=== PATIENT | male | born 1990 | race American Indian/Alaskan Native ===

== ENCOUNTER 2017-01-30 13:50 | Emergency (ER) | payer SELFPAY ==
--- NOTE | 2017-01-30 13:50 | EDM.PDOC ---
ED HPI GENERAL MEDICAL PROBLEM - General Chief Complaint: Drug or Alcohol Abuse Stated Complaint: chest pain. In by [facility] Time Seen by Provider: 01/30/17 13:50 Source of Information: Reports: Patient, EMS, Old Records, RN, RN Notes Reviewed History Limitations: Reports: No Limitations - History of Present Illness INITIAL COMMENTS - FREE TEXT/NARRATIVE: Arrives by ambulance stating that yesterday was his birthday and he got really drunk, then this morning he woke with anxiety and ran outside, then laid down on the ground and told his girlfriend to call 911. Now the pt states that he is pain free, but still would like to be checked out. Onset: Today Duration: Improving Location: Reports: Chest, Generalized Severity: Severe Improves with: Reports: None Worsens with: Reports: None Associated Symptoms: Reports: No Other Symptoms Left Chest Pain Score (Numeric/FACES): 3 - Related Data Allergies Allergy/AdvReac Type Severity Reaction Status Date / Time No Known Allergies Allergy Verified 01/30/17 13:57 Home Meds: Home Meds . [No Known Home Meds] 07/09/15 [History] Past Medical History - Past Health History Medical/Surgical History: Denies Medical/Surgical History HEENT History: Reports: None Cardiovascular History: Reports: None Respiratory History: Reports: None Gastrointestinal History: Reports: None Genitourinary History: Reports: None Musculoskeletal History: Reports: None Neurological History: Reports: None Psychiatric History: Reports: Anxiety Endocrine/Metabolic History: Reports: None Hematologic History: Reports: None Immunologic History: Reports: None Oncologic (Cancer) History: Reports: None Dermatologic History: Reports: None - Past Surgical History Other HEENT Surgeries/Procedures: nasal surgery Respiratory Surgical History: Reports: None GI Surgical History: Reports: None Male Surgical History: Reports: None Musculoskeletal Surgical History: Reports: None Social & Family History - Family History Family Medical History: Noncontributory - Tobacco Use Smoking Status *Q: Former Smoker - Alcohol Use Days Per Week of Alcohol Use: 7 Number of Drinks Per Day: 2 Total Drinks Per Week: 14 - Recreational Drug Use Recreational Drug Use: No - Living Situation & Occupation Living situation: Reports: with Significant Other Occupation: Unemployed ED ROS GENERAL - Review of Systems Review Of Systems: ROS reveals no pertinent complaints other than HPI. ED EXAM, GENERAL - Physical Exam Exam: See Below Exam Limited By: Intoxication General Appearance: Alert, WD/WN, No Apparent Distress, Anxious Eye Exam: Bilateral Eye: Normal Inspection Ears: Normal External Exam Nose: Normal Inspection Throat/Mouth: Normal Inspection Head: Atraumatic, Normocephalic Neck: Normal Inspection, Supple, Non-Tender, Full Range of Motion Respiratory/Chest: No Respiratory Distress, Lungs Clear, Normal Breath Sounds, No Accessory Muscle Use, Chest Non-Tender Cardiovascular: Normal Peripheral Pulses, Regular Rate, Rhythm, No Edema, No Gallop, No JVD, No Murmur, No Rub GI/Abdominal: Normal Bowel Sounds, Soft, Non-Tender, No Organomegaly, No Distention, No Abnormal Bruit, No Mass Back Exam: Normal Inspection Extremities: Normal Inspection Neurological: Alert, Oriented, CN II-XII Intact, Normal Cognition, Normal Gait, No Motor/Sensory Deficits Psychiatric: Normal Affect, Normal Mood Skin Exam: Warm, Dry, Intact, Normal Color, No Rash EKG INTERPRETATION EKG Date: 01/30/17 Time: 13:55 Rhythm: Other (SR) Rate (Beats/Min): 81 [place]: Normal P-Wave: Present QRS: Normal ST-T: Normal QT: Normal Comparison: No Change Course - Vital Signs Last Recorded V/S: Last Vital Signs Temp 36.2 C 01/30/17 15:28 Pulse 100 01/30/17 15:28 Resp 16 01/30/17 15:28 BP 108/80 01/30/17 15:28 Pulse Ox 99 01/30/17 15:28 - Orders/Labs/Meds Orders: Active Orders 24 hr Category Date Time Status EKG 12 Lead [EKG Documentation Completion] [RC] STAT Care 01/30/17 13:53 Active Labs: Laboratory Tests 01/30/17 01/30/17 01/30/17 Range/Units 14:10 14:10 14:10 WBC 7.3 (5.0-10.0) 10^3/uL RBC 5.41 (4.6-6.2) 10^6/uL Hgb 15.6 (14.0-18.0) g/dL Hct 46.8 (40.0-54.0) % MCV 86.5 (80-100) fL MCH 28.8 (27.0-34.0) pg MCHC 33.3 (33.0-35.0) g/dL Plt Count 353 (150-450) 10^3/uL Neut % (Auto) 60.7 (42.2-75.2) % Lymph % (Auto) 27.4 (20.5-50.1) % [place] % (Auto) 10.1 H (2-8) % Eos % (Auto) 1.0 (1.0-3.0) % Baso % (Auto) 0.8 (0.0-1.0) % D-Dimer, Quantitative < 100 (0-400) ng/mL Sodium 143 (135-145) mmol/L Potassium 3.7 (3.6-5.0) mmol/L Chloride 106 (101-111) mmol/L Carbon Dioxide 24.0 (21.0-31.0) mmol/L Anion Gap 16.7 BUN 6 L (7-18) mg/dL Creatinine 0.8 (0.6-1.3) mg/dL Est Cr Clr Drug Dosing 147.12 mL/min Estimated GFR (MDRD) > 60 BUN/Creatinine Ratio 7.50 Glucose 104 (74-105) mg/dL Calcium 8.3 L (8.4-10.2) mg/dl Total Bilirubin 0.7 (0.2-1.0) mg/dL AST 25 (10-42) IU/L ALT 28 (10-60) IU/L Alkaline Phosphatase 109 (42-121) IU/L Troponin I < 0.02 (0.00-0.02) ng/ml Total Protein 7.8 (6.7-8.2) g/dl Albumin 3.9 (3.2-5.5) g/dl Globulin 3.9 Albumin/Globulin Ratio 1.00 Amylase 40 (28-100) U/L Lipase 16 L (22-51) U/L Urine Color (YELLOW) Urine Appearance (CLEAR) Urine pH (5.0-9.0) Ur Specific [place] (1.005-1.030) Urine Protein (NEGATIVE) Urine Glucose (UA) (NEGATIVE) Urine Ketones (NEGATIVE) Urine Occult Blood (NEGATIVE) Urine Nitrite (NEGATIVE) Urine Bilirubin (NEGATIVE) Urine Urobilinogen (0.2-1.0) mg/dL Ur Leukocyte Esterase (NEGATIVE) Urine RBC /HPF Urine WBC (0-5/HPF) /HPF Ur Epithelial Cells /HPF Urine Bacteria (0-FEW/HPF) /HPF Urine Opiates Screen (NEGATIVE) Ur Oxycodone Screen (NEGATIVE) Urine Methadone Screen (NEGATIVE) Ur Barbiturates Screen (NEGATIVE) U Tricyclic Antidepress (NEGATIVE) Ur Phencyclidine Scrn (NEGATIVE) Ur Amphetamine Screen (NEGATIVE) U Methamphetamines Scrn (NEGATIVE) Urine MDMA Screen (NEGATIVE) U Benzodiazepines Scrn (NEGATIVE) Urine Cocaine Screen (NEGATIVE) U Marijuana (THC) Screen (NEGATIVE) Ethyl Alcohol 306 mg/dL 01/30/17 01/30/17 Range/Units 14:46 14:46 WBC (5.0-10.0) 10^3/uL RBC (4.6-6.2) 10^6/uL Hgb (14.0-18.0) g/dL Hct (40.0-54.0) % MCV (80-100) fL MCH (27.0-34.0) pg MCHC (33.0-35.0) g/dL Plt Count (150-450) 10^3/uL Neut % (Auto) (42.2-75.2) % Lymph % (Auto) (20.5-50.1) % [place] % (Auto) (2-8) % Eos % (Auto) (1.0-3.0) % Baso % (Auto) (0.0-1.0) % D-Dimer, Quantitative (0-400) ng/mL Sodium (135-145) mmol/L Potassium (3.6-5.0) mmol/L Chloride (101-111) mmol/L Carbon Dioxide (21.0-31.0) mmol/L Anion Gap BUN (7-18) mg/dL Creatinine (0.6-1.3) mg/dL Est Cr Clr Drug Dosing mL/min Estimated GFR (MDRD) BUN/Creatinine Ratio Glucose (74-105) mg/dL Calcium (8.4-10.2) mg/dl Total Bilirubin (0.2-1.0) mg/dL AST (10-42) IU/L ALT (10-60) IU/L Alkaline Phosphatase (42-121) IU/L Troponin I (0.00-0.02) ng/ml Total Protein (6.7-8.2) g/dl Albumin (3.2-5.5) g/dl Globulin Albumin/Globulin Ratio Amylase (28-100) U/L Lipase (22-51) U/L Urine Color Yellow (YELLOW) Urine Appearance Clear (CLEAR) Urine pH 6.0 (5.0-9.0) Ur Specific [place] 1.020 (1.005-1.030) Urine Protein Negative (NEGATIVE) Urine Glucose (UA) Negative (NEGATIVE) Urine Ketones Negative (NEGATIVE) Urine Occult Blood Negative (NEGATIVE) Urine Nitrite Negative (NEGATIVE) Urine Bilirubin Negative (NEGATIVE) Urine Urobilinogen 0.2 (0.2-1.0) mg/dL Ur Leukocyte Esterase Negative (NEGATIVE) Urine RBC Not seen /HPF Urine WBC 0-5 (0-5/HPF) /HPF Ur Epithelial Cells Rare /HPF Urine Bacteria Occasional (0-FEW/HPF) /HPF Urine Opiates Screen Negative (NEGATIVE) Ur Oxycodone Screen Negative (NEGATIVE) Urine Methadone Screen Negative (NEGATIVE) Ur Barbiturates Screen Negative (NEGATIVE) U Tricyclic Antidepress Negative (NEGATIVE) Ur Phencyclidine Scrn Negative (NEGATIVE) Ur Amphetamine Screen Negative (NEGATIVE) U Methamphetamines Scrn Negative (NEGATIVE) Urine MDMA Screen Negative (NEGATIVE) U Benzodiazepines Scrn Negative (NEGATIVE) Urine Cocaine Screen Negative (NEGATIVE) U Marijuana (THC) Screen Negative (NEGATIVE) Ethyl Alcohol mg/dL - Radiology Interpretation Free Text/Narrative:: CXR: no acute process. Departure - Departure Time of Disposition: 15:24 Disposition: Home, Self-Care 01 Condition: Good Clinical Impression: Atypical chest pain, Anxiety Acute alcohol intoxication Qualifiers: Complication of substance-induced condition: uncomplicated Qualified Code(s): F10.920 - Alcohol use, unspecified with intoxication, uncomplicated - Discharge Information Instructions: Panic Attacks, [id number], Nonspecific Chest Pain, [id number] , Alcohol Intoxication, [id number] Forms: ED Department Discharge Additional Instructions: Do not drink alcohol. Follow up in clinic this week for recheck. - My Orders Last 24 Hours: My Active Orders 01/30/17 13:53 EKG 12 Lead [EKG Documentation Completion] [RC] STAT - Assessment/Plan Last 24 Hours: My Active Orders 01/30/17 13:53 EKG 12 Lead [EKG Documentation Completion] [RC] STAT
[2017-01-30 14:39] LABS: CHLORIDE,CL 106 mmol/L (101-111); SODIUM,NA 143 mmol/L (135-145)
--- NOTE | 2017-01-30 14:51 | CR ---
Contrast: 27-year-old male chest pain. Interpretation: Negative exam. AP portable chest film with external clinical research monitor leads. [place] thorax unremarkable. Normal cardiac silhouette without alveolar edema or dependent pleural effusion. No lung mass, hilar lymphadenopathy or focal lobar infiltrate/atelectasis. No pneumothorax.
[2017-01-30 15:29] VITALS: BP 108/80
--- NOTE | 2017-02-07 11:03 | EKG ---
01/30/2017- OLGA SON - EKG per my reading shows sinus rhythm at a rate of 80. No acute ST changes. [facility] /[id number]
== END 2017-01-30 16:00 | disposition home or self-care (01) ==
LOC: DL.ED 13:50
DX: R07.89 Other chest pain (principal); F41.9 Anxiety disorder, unspecified; F10.920 Alcohol use, unspecified with intoxication, uncomplicated; Z87.891 Personal history of nicotine dependence; Z98.890 Other specified postprocedural states; Y90.8 Blood alcohol level of 240 mg/100 ml or more
CPT/HCPCS: 36415; 71010; 80053; 80305; 81001; 82150; 83690; 84484; 85025; 85379; 93005; 93010; 99285; G0480; 99282

== ENCOUNTER 2017-07-11 10:09 | Emergency (ER) | payer OTHER ==
[2017-07-11 10:24] VITALS: BP 135/90
[2017-07-11] MEDS ORDERED: Bacitracin Oint 1 GM U/D Packet TOP ONE (10:45)
--- NOTE | 2017-07-11 10:52 | EDM.PDOC ---
ED HPI GENERAL MEDICAL PROBLEM - General Chief Complaint: Upper Extremity Injury/Pain Stated Complaint: CUT TO LEFT ARM, Time Seen by Provider: 07/11/17 10:34 Source of Information: Reports: Patient, RN, RN Notes Reviewed History Limitations: Reports: No Limitations - History of Present Illness INITIAL COMMENTS - FREE TEXT/NARRATIVE: Pt presents to the ER with c/o a cut on the left forearm. He states he cut his left forearm on a mirror while trying to replace it on July 03 or . He states he went to EMS at [facility] where it was cleaned up, dressed, and he was told to have it checked out. He states he was not told that he had a certain time frame to get it sutured. Patient states he has been cleaning it and keeping it covered. He states his last tetanus was 4-5 years ago. Pt denies numbness or tingling, can wiggle his fingers, and denies fever or chills, or drainage from the wound. Onset: Sudden Onset Date: 07/03/17 Severity: Mild Improves with: Reports: None Worsens with: Reports: None Associated Symptoms: Reports: No Other Symptoms - Related Data Allergies Allergy/AdvReac Type Severity Reaction Status Date / Time dog shampoo Allergy Swelling Uncoded 07/11/17 10:25 Home Meds: Home Meds . [No Known Home Meds] 07/09/15 [History] Past Medical History - Past Health History Medical/Surgical History: Denies Medical/Surgical History HEENT History: Reports: None Cardiovascular History: Reports: None Respiratory History: Reports: None Gastrointestinal History: Reports: None Genitourinary History: Reports: None Musculoskeletal History: Reports: None Neurological History: Reports: None Psychiatric History: Reports: Anxiety Endocrine/Metabolic History: Reports: None Hematologic History: Reports: None Immunologic History: Reports: None Oncologic (Cancer) History: Reports: None Dermatologic History: Reports: None - Infectious Disease History Infectious Disease History: Reports: Chicken Pox - Past Surgical History Head Surgeries/Procedures: Reports: None Other HEENT Surgeries/Procedures: nasal surgery Respiratory Surgical History: Reports: None GI Surgical History: Reports: None Male Surgical History: Reports: None Musculoskeletal Surgical History: Reports: None Social & Family History - Family History Family Medical History: Noncontributory - Tobacco Use Smoking Status *Q: Current Every Day Smoker Years of Tobacco use: 8 Packs/Tins Daily: 0.5 Second Hand Smoke Exposure: No - Caffeine Use Caffeine Use: Reports: Coffee, Soda - Alcohol Use Days Per Week of Alcohol Use: 7 Number of Drinks Per Day: 2 Total Drinks Per Week: 14 - Recreational Drug Use Recreational Drug Use: No - Living Situation & Occupation Living situation: Reports: with Significant Other Occupation: Unemployed Review of Systems - Review of Systems Review Of Systems: ROS reveals no pertinent complaints other than HPI. ED EXAM, GENERAL - Physical Exam Exam: See Below Exam Limited By: No Limitations General Appearance: Alert, WD/WN, No Apparent Distress Eye Exam: Bilateral Eye: EOMI, Normal Fundi, PERRL Ears: Normal External Exam, Hearing Grossly Normal Nose: Normal Inspection Throat/Mouth: Normal Inspection, Normal Voice, No Airway Compromise Head: Atraumatic, Normocephalic Neck: Normal Inspection, Full Range of Motion Respiratory/Chest: No Respiratory Distress, Lungs Clear, Normal Breath Sounds, No Accessory Muscle Use, Chest Non-Tender Cardiovascular: Normal Peripheral Pulses, Regular Rate, Rhythm, No Edema, No Gallop, No JVD, No Murmur, No Rub Peripheral Pulses: 2+: Radial (L), Radial (R) GI/Abdominal: Normal Bowel Sounds, Soft, Non-Tender, No Organomegaly, No Distention, No Abnormal Bruit, No Mass (Male) Exam: Deferred Rectal (Males) Exam: Deferred Back Exam: Normal Inspection, Full Range of Motion, NT Extremities: Normal Range of Motion, No Pedal Edema, Normal Capillary Refill, Other (laceration to dorsal left forearm) Neurological: Alert, Oriented, CN II-XII Intact, Normal Cognition, Normal Gait, Normal Reflexes, No Motor/Sensory Deficits Skin Exam: Warm, Dry, Normal Color, Other (7cm gaping laceration to the dorsal side of the left forearm. No drainage, no bleeding. ) Lymphatic: No Adenopathy Course - Vital Signs Last Recorded V/S: Last Vital Signs Temp 98.1 F 07/11/17 10:19 Pulse 66 07/11/17 10:19 Resp 16 07/11/17 10:19 BP 135/90 07/11/17 10:19 Pulse Ox 99 07/11/17 10:19 - Orders/Labs/Meds Meds: Medications Discontinued Medications Generic Name Dose Route Start Last Admin Trade Name Freq PRN Reason Stop Dose Admin Bacitracin 1 dose 07/11/17 10:45 07/11/17 10:50 Bacitracin Oint 1 Gm TOP 07/11/17 10:46 1 dose ONETIME ONE Administration - Re-Assessments/Exams Free Text/Narrative Re-Assessment/Exam: 07/11/17 15:35 Patient was told that we cannot suture the laceration at this time due to the amount of time it has been open. Patient states understanding. Departure - Departure Time of Disposition: 10:48 Disposition: Home, Self-Care 01 Condition: Good Clinical Impression: Laceration - Discharge Information Instructions: Laceration Care, Adult, [id number] Referrals: PCP,None [Primary Care Provider] - Forms: ED Department Discharge Additional Instructions: RX: Bacitracin Apply bacitracin to the area twice daily, cover with a non-stick pad, and wrap with Kerlix wrap. Follow up with your primary care facility as necessary. Watch for signs of infection including: fever, chills, drainage from the wound.
== END 2017-07-11 11:05 | disposition home or self-care (01) ==
LOC: DL.ED 10:09
DX: S51.812A Laceration without foreign body of left forearm, initial encounter (principal); F17.210 Nicotine dependence, cigarettes, uncomplicated; Z91.048 Other nonmedicinal substance allergy status; W25.XXXA Contact with sharp glass, initial encounter
CPT/HCPCS: 99283

== ENCOUNTER 2020-10-28 18:43 | Emergency (ER) | payer MEDICAID, OTHER ==
[2020-10-28 19:07] VITALS: BP 136/96; PULSE 111
[2020-10-28] MEDS ORDERED: cefTRIAXone 500 MG, Lidocaine 1% 1 ML IM ONE ×2 (19:38)
[2020-10-28] MEDS ORDERED: Doxycycline Monohydrate 100 MG Cap PO ONE (19:40)
--- NOTE | 2020-10-28 19:48 | EDM.PDOC ---
ED HPI GENERAL MEDICAL PROBLEM - General Chief Complaint: Skin Complaint Stated Complaint: PENIS SWALLON Time Seen by Provider: 10/28/20 19:30 Source of Information: Reports: Patient History Limitations: Reports: No Limitations - History of Present Illness INITIAL COMMENTS - FREE TEXT/NARRATIVE: This 30 yo male patient reports to the ED with swelling to his penis for the past 2 days. The patient reports that he thinks his girlfriend may have bitten his penis 2 days ago prior to symptom onset. The patient reports he has been icing the area. The patient has not noticed any drainage or difficulties urinating. The patient has not been seen in the clinic for these symptoms. Duration: Day(s): (2), Constant, Getting Worse Location: Reports: Other Quality: Reports: Ache, Pressure, Throbbing Severity: Moderate Improves with: Reports: None Worsens with: Reports: None Context: Reports: Other Associated Symptoms: Reports: No Other Symptoms Penis Pain Score (Numeric/FACES): 6 - Related Data Allergies Allergy/AdvReac Type Severity Reaction Status Date / Time dog shampoo Allergy Swelling Uncoded 10/28/20 19:08 Home Meds: Home Meds . [No Known Home Meds] 07/09/15 [History] Past Medical History - Past Health History Medical/Surgical History: Denies Medical/Surgical History HEENT History: Reports: None Cardiovascular History: Reports: None Respiratory History: Reports: None Gastrointestinal History: Reports: None Genitourinary History: Reports: None Musculoskeletal History: Reports: None, Other (See Below) Other Musculoskeletal History: broken nose. Neurological History: Reports: None Psychiatric History: Reports: Anxiety Endocrine/Metabolic History: Reports: None Hematologic History: Reports: None Immunologic History: Reports: None Oncologic (Cancer) History: Reports: None Dermatologic History: Reports: None - Infectious Disease History Infectious Disease History: Reports: Chicken Pox - Past Surgical History Head Surgeries/Procedures: Reports: None Other HEENT Surgeries/Procedures: nasal surgery Respiratory Surgical History: Reports: None GI Surgical History: Reports: None Male Surgical History: Reports: None Musculoskeletal Surgical History: Reports: None Social & Family History - Family History Family Medical History: No Pertinent Family History - Tobacco Use Tobacco Use Status *Q: Never Tobacco User Second Hand Smoke Exposure: No - Caffeine Use Caffeine Use: Reports: Coffee - Recreational Drug Use Drug Use in Last 12 Months: Yes Recreational Drug Type: Reports: Marijuana/Hashish Recreational Drug Use Frequency: Weekly - Living Situation & Occupation Living situation: Reports: with Significant Other Occupation: Unemployed ED ROS GENERAL - Review of Systems Review Of Systems: Comprehensive ROS is negative, except as noted in HPI. ED EXAM, SKIN/RASH Exam: See Below Exam Limited By: No Limitations General Appearance: Alert, WD/WN, Moderate Distress Eye Exam: Bilateral Eye: EOMI, Normal Inspection, PERRL Ears: Normal External Exam, Normal Canal, Hearing Grossly Normal, Normal TMs Nose: Normal Inspection, Normal Mucosa, No Blood Throat/Mouth: Normal Inspection, Normal Lips, Normal Teeth, Normal Gums, Normal Oropharynx, Normal Voice, No Airway Compromise Head: Atraumatic, Normocephalic Neck: Normal Inspection, Supple, Non-Tender, Full Range of Motion Respiratory/Chest: No Respiratory Distress, Lungs Clear, Normal Breath Sounds, No Accessory Muscle Use, Chest Non-Tender Cardiovascular: Normal Peripheral Pulses, Regular Rate, Rhythm, No Edema, No Gallop, No JVD, No Murmur, No Rub GI/Abdominal: Normal Bowel Sounds, Soft, Non-Tender, No Organomegaly, No Distention, No Abnormal Bruit, No Mass (Male) Exam: Other (Swelling of the distal penis with no signs of injury) Rectal (Males) Exam: Deferred Back Exam: Normal Inspection, Full Range of Motion, NT Extremities: Normal Inspection, Normal Range of Motion, Non-Tender, No Pedal Edema, Normal Capillary Refill Neurological: Alert, Oriented, CN II-XII Intact, Normal Cognition, Normal Gait, Normal Reflexes, No Motor/Sensory Deficits Psychiatric: Normal Affect, Normal Mood Skin: Warm, Dry, Intact Location, Skin: Genital Characteristics: Erythematous Associated features: Warmth, Tenderness, Swelling, Inflammation. No: Induration, Crusting, Weeping Lymphatic: No Adenopathy Course - Vital Signs Last Recorded V/S: Last Vital Signs Temp 36.6 C 10/28/20 18:57 Pulse 111 H 10/28/20 18:57 Resp 20 10/28/20 18:57 BP 136/96 H 10/28/20 18:57 Pulse Ox - Orders/Labs/Meds Orders: Active Orders 24 hr Category Date Time Status CHLAMYDIA/GC NUCLEIC ACID AMP [MREF] Urgent Lab 10/28/20 18:57 Ordered CULTURE URINE [RM] Urgent Lab 10/28/20 19:19 Received Labs: Laboratory Tests 10/28/20 Range/Units 19:19 Urine Color Dark yellow (YELLOW) Urine Appearance Slightly cloudy (CLEAR) Urine pH >= 9.0 (5.0-9.0) Ur Specific [place] 1.015 (1.005-1.030) Urine Protein 30 H (NEGATIVE) Urine Glucose (UA) Negative (NEGATIVE) Urine Ketones Negative (NEGATIVE) Urine Occult Blood Negative (NEGATIVE) Urine Nitrite Negative (NEGATIVE) Urine Bilirubin Small H (NEGATIVE) Urine Urobilinogen 4.0 H (0.2-1.0) mg/dL Ur Leukocyte Esterase Trace H (NEGATIVE) Urine RBC Not seen /HPF Urine WBC 10-20 H (0-5/HPF) /HPF Ur Epithelial Cells Rare (NOT SEEN) /HPF Urine Bacteria Few (0-FEW/HPF) /HPF Meds: Medications Discontinued Medications Generic Name Dose Route Start Last Admin Trade Name Freq PRN Reason Stop Dose Admin Ceftriaxone Sodium 500 mg/ 0 mg 10/28/20 19:38 Lidocaine HCl 1 ml IM 10/28/20 19:39 ONETIME ONE Doxycycline Monohydrate 100 mg 10/28/20 19:40 Doxycycline Monohydrate 100 Mg Cap PO 10/28/20 19:41 ONETIME ONE Departure - Departure Time of Disposition: 19:47 Disposition: Home, Self-Care 01 Condition: Fair Clinical Impression: Balanitis - Discharge Information *PRESCRIPTION DRUG MONITORING PROGRAM REVIEWED*: Not Applicable Care Plan Goals: The patient was advised of the examination and lab results during the visit. The patient was given an injection of Rocephin and an oral dose of Doxycycline while in the ED. The patient was discharged with a script for Doxycycline (100 mg) #14 to take 1 by mouth 2 times per day for 7 days. The patient should follow-up with his primary care facility within the week. If the patient has any additional symptoms or concerns, the patient should either return to the emergency department or visit his primary care facility. Sepsis Event Note (ED) - Evaluation Sepsis Screening Result: No Definite Risk - Focused Exam Vital Signs: Vital Signs Temp Pulse Resp BP 10/28/20 18:57 36.6 C 111 H 20 136/96 H - My Orders Last 24 Hours: My Active Orders 10/28/20 18:57 CHLAMYDIA/GC NUCLEIC ACID AMP [MREF] Urgent 10/28/20 19:19 CULTURE URINE [RM] Urgent - Assessment/Plan Last 24 Hours: My Active Orders 10/28/20 18:57 CHLAMYDIA/GC NUCLEIC ACID AMP [MREF] Urgent 10/28/20 19:19 CULTURE URINE [RM] Urgent
[2020-11-01 13:47] LABS: C.TRACHOMATIS BY TMA Negative (Negative); N.GONORRHOEAE BY TMA Negative (Negative)
== END 2020-10-28 19:56 | disposition home or self-care (01) ==
LOC: DL.ED 18:43
DX: N48.1 Balanitis (principal); Z91.09 Other allergy status, other than to drugs and biological substances
CPT/HCPCS: 81001; 87086; 87491; 87591; 96372; 99283; 99284; A9270; J0696

== ENCOUNTER 2022-01-26 09:41 | Emergency (ER) | payer MEDICAID, OTHER ==
[2022-01-26 09:56] VITALS: BP 132/105; PULSE 88
[2022-01-26 10:34] LABS: AMPHETAMINES,URINE NEGATIVE (NEGATIVE); BARBITURATES,URINE NEGATIVE (NEGATIVE); BENZODIAZEPINE,URINE NEGATIVE (NEGATIVE); MDMA (ECSTASY), URINE NEGATIVE (NEGATIVE); METHADONE,URINE NEGATIVE (NEGATIVE); METHAMPHETAMINES,URINE NEGATIVE (NEGATIVE); OPIATES,URINE NEGATIVE (NEGATIVE); OXYCODONE,URINE NEGATIVE (NEGATIVE); PHENCYCLIDINE,URINE NEGATIVE (NEGATIVE); TCA,URINE NEGATIVE (NEGATIVE)
[2022-01-26] MEDS ORDERED: Ondansetron 4 MG/2 ML SDV IVPUSH ONE (10:35)
[2022-01-26] MEDS ORDERED: Sodium Chloride 0.9% 10 ML Syringe FLUSH PRN (10:35)
[2022-01-26] MEDS ORDERED: Sodium Chloride 0.9% 1,000 ML IV ONE (10:35)
[2022-01-26 10:38] LABS: CHLORIDE,CL 102 mmol/L (98-107)
[2022-01-26 10:40] LABS: ESTIMATED GFR 111 mL/min (>=60)
[2022-01-26] MEDS ORDERED: Iopamidol 612 MG/ML 100 ML Bottle IVPUSH ONE (11:47)
[2022-01-26 12:06] LABS: SODIUM,NA 144 mmol/L (136-145)
[2022-01-26 12:07] LABS: ANION GAP 14.9 mEq/L (7-13)
== END 2022-01-26 13:00 | disposition home or self-care (01) ==
LOC: DL.ED 09:41
DX: R10.10 Upper abdominal pain, unspecified (principal); Z91.048 Other nonmedicinal substance allergy status; Z87.891 Personal history of nicotine dependence; Z20.822 Contact with and (suspected) exposure to COVID-19
CPT/HCPCS: 36415; 71045; 74018; 74177; 80053; 80305; 80307; 81001; 83605; 83690; 85025; 86140; 87635; 96361; 96374; 99285; J2405; J7030; Q9967; 99283; U0002

== ENCOUNTER 2022-04-16 15:29 | Emergency (ER) | payer MEDICAID | END 2022-04-16 16:59 | disposition home or self-care (01) | LOC: DL.ED 15:29 | DX: M79.671 Pain in right foot (principal); M79.672 Pain in left foot; I10 Essential (primary) hypertension; E11.9 Type 2 diabetes mellitus without complications | CPT/HCPCS: 99283 ==

== ENCOUNTER 2023-01-05 17:09 | Emergency (ER) | payer MEDICAID ==
[2023-01-05] MEDS ORDERED: Lidocaine 1% 5 ML VIAL INJECT ONE (17:16)
[2023-01-05 17:42] VITALS: BP 136/108; PULSE 72
== END 2023-01-05 17:50 | disposition home or self-care (01) ==
LOC: DL.ED 17:09
DX: L02.01 Cutaneous abscess of face (principal); H66.42 Suppurative otitis media, unspecified, left ear; Z91.048 Other nonmedicinal substance allergy status
CPT/HCPCS: 10060; 69000; 87070; 99282; 99283; J3490

== ENCOUNTER 2023-03-15 09:54 | Inpatient (IN) | payer MEDICAID ==
[2023-03-15] MEDS ORDERED: Ondansetron 4 MG/2 ML SDV IVPUSH ONE (10:24)
[2023-03-15] MEDS ORDERED: Lactated Ringers 1,000 ML IV ONE ×2 (10:24→11:14)
[2023-03-15] MEDS ORDERED: HYDROmorphone 1 MG/ML Syringe IVPUSH ONE ×2 (10:24→12:33)
[2023-03-15 10:34] LABS: BASOPHILS PERCENT AUTO 0.1 % (0.0-1.0); HEMATOCRIT 51.6 % (40.0-54.0); HEMOGLOBIN 17.6 g/dL (14.0-18.0); LYMPHOCYTES PERCENT AUTO 2.2 % (20.5-50.1); MEAN CORPUSCULAR HEMOGLOBIN 30.6 pg (27.0-34.0); MEAN CORPUSCULAR HGB CONC 34.1 g/dL (33.0-35.0); MEAN CORPUSCULAR VOLUME 89.6 fL (80-100); NEUTROPHILS PERCENT AUTO 91.7 % (42.2-75.2); PLATELET COUNT,PLT 346 10^3/uL (150-450); RED BLOOD CELL COUNT 5.76 10^6/uL (4.6-6.2)
[2023-03-15 10:37] LABS: INR 0.9 (0.9-1.2); PROTHROMBIN TIME 9.6 SEC (9.0-12.0)
[2023-03-15 10:39] LABS: A/G RATIO 0.9; ALANINE AMINOTRANSFERASE,ALT 40 U/L (16-63); ALBUMIN 4.6 g/dL (3.4-5.0); ALKALINE PHOSPHATASE 187 U/L (46-116); ANION GAP 28.8 mEq/L (7-13); ASPARTATE AMNIOTRANSFERASE,AST 27 U/L (15-37); BILIRUBIN TOTAL 3.2 mg/dL (0.2-1.0); BLOOD UREA NITROGEN,BUN 17 mg/dL (7-18); BUN/CREATININE RATIO 14.9 (No establ ref range); C-REACTIVE PROTEIN 1.45 ng/dL (<=0.30); CALCIUM 10.7 mg/dL (8.5-10.1); CARBON DIOXIDE,CO2 21 mmol/L (21-32); CHLORIDE,CL 90 mmol/L (98-107); CREATININE 1.14 mg/dL (0.70-1.30); GLUCOSE RANDOM 110 mg/dL (70-99); MAGNESIUM 2.2 mg/dL (1.8-2.4); POTASSIUM,K 3.8 mmol/L (3.5-5.1); SODIUM,NA 136 mmol/L (136-145)
[2023-03-15 10:47] LABS: LACTIC ACID 1.6 mmol/L (0.4-2.0)
[2023-03-15 10:54] LABS: ESTIMATED GFR 87 mL/min (>=60)
[2023-03-15 10:55] LABS: ETHANOL BLOOD MEDICAL < 3 mg/dL (0); LIPASE > 250 U/L (16-77)
[2023-03-15] MEDS ORDERED: Iopamidol 755 Mg/ML 100 ML Bottle IVPUSH ONE (11:14)
[2023-03-15 11:29] LABS: APPEARANCE,URINE CLEAR (CLEAR); BILIRUBIN,URINE SMALL (NEGATIVE); COLOR,URINE DARK YELLOW (YELLOW); GLUCOSE,URINE NEGATIVE (NEGATIVE); KETONES,URINE >=160 (NEGATIVE); LEUKOCYTE ESTERASE,URINE NEGATIVE (NEGATIVE); NITRITE,URINE NEGATIVE (NEGATIVE); OCCULT BLOOD,URINE TRACE-INTACT (NEGATIVE); PROTEIN,URINE 100 (NEGATIVE); UROBILINOGEN,URINE 0.2 mg/dL (0.2-1.0)
[2023-03-15 11:31] LABS: MDMA (ECSTASY), URINE NEGATIVE (NEGATIVE); METHAMPHETAMINES,URINE NEGATIVE (NEGATIVE)
[2023-03-15 11:32] LABS: AMPHETAMINES,URINE NEGATIVE (NEGATIVE); BARBITURATES,URINE NEGATIVE (NEGATIVE); BENZODIAZEPINE,URINE NEGATIVE (NEGATIVE); METHADONE,URINE NEGATIVE (NEGATIVE); OPIATES,URINE NEGATIVE (NEGATIVE); OXYCODONE,URINE NEGATIVE (NEGATIVE); PHENCYCLIDINE,URINE NEGATIVE (NEGATIVE); TCA,URINE NEGATIVE (NEGATIVE)
[2023-03-15 11:41] LABS: BACTERIA,URINE RARE /HPF (0-FEW/HPF); EPITHELIAL CELLS,URINE RARE /HPF (NOT SEEN); HYALINE CASTS,URINE FEW; RBC,URINE 0-5 /HPF (0-5); WBC,URINE 0-5 /HPF (0-5/HPF)
[2023-03-15] MEDS ORDERED: Zolpidem 5 MG Tab PO PRN (13:09)
[2023-03-15] MEDS ORDERED: Ondansetron 4 MG Tab.DIS PO PRN (13:09)
[2023-03-15] MEDS ORDERED: Promethazine 25 MG/ML SDV IM PRN (13:09)
[2023-03-15] MEDS: Dextrose 5%-0.9% NaCl with KCl 1,000 ML IV SCH ×2 (13:36→19:21)
[2023-03-15] MEDS: Morphine 2 MG/ML SYRINGE IVPUSH PRN ×3 (15:17→19:38)
[2023-03-15] MEDS: Calcium Carbonate 500 MG Tab.Chew PO SCH (15:22)
[2023-03-15] MEDS: Vitamin B Complex Cap PO SCH (15:23)
[2023-03-15] MEDS: Thiamine 100 MG Tab PO SCH (15:23)
[2023-03-15] MEDS: Ondansetron 4 MG/2 ML SDV IVPUSH PRN (21:09)
[2023-03-15] MEDS: Morphine 4 MG/ML Syringe IVPUSH PRN (21:24)
[2023-03-16] MEDS: Dextrose 5%-0.9% NaCl with KCl 1,000 ML IV SCH ×3 (00:20→10:32)
[2023-03-16] MEDS: Morphine 4 MG/ML Syringe IVPUSH PRN ×5 (00:28→19:52)
[2023-03-16] MEDS: Ondansetron 4 MG/2 ML SDV IVPUSH PRN ×3 (04:00→19:50)
[2023-03-16 06:09] LABS: BASOPHILS PERCENT AUTO 0.1 % (0.0-1.0); HEMATOCRIT 45.6 % (40.0-54.0); HEMOGLOBIN 15.5 g/dL (14.0-18.0); LYMPHOCYTES PERCENT AUTO 2.7 % (20.5-50.1); MEAN CORPUSCULAR HEMOGLOBIN 30.7 pg (27.0-34.0); MEAN CORPUSCULAR VOLUME 90.3 fL (80-100); MONOCYTES PERCENT AUTO 8.9 % (2-8); NEUTROPHILS PERCENT AUTO 88.3 % (42.2-75.2); PLATELET COUNT,PLT 211 10^3/uL (150-450); RED BLOOD CELL COUNT 5.05 10^6/uL (4.6-6.2); WHITE BLOOD CELL COUNT,WBC 21.9 10^3/uL (5.0-10.0)
[2023-03-16 06:28] LABS: ANION GAP 11.6 mEq/L (7-13); CALCIUM 8.3 mg/dL (8.5-10.1); CREATININE 0.75 mg/dL (0.70-1.30); EST CRCL DRUG DOSING (CG) 136.71 mL/min; POTASSIUM,K 3.6 mmol/L (3.5-5.1)
[2023-03-16 07:46] LABS: C-REACTIVE PROTEIN 5.88 ng/dL (<=0.30)
[2023-03-16 07:56] LABS: LIPASE > 250 U/L (16-77)
[2023-03-16] MEDS ORDERED: oxyCODONE ER 10 MG TAB.ER PO SCH ×2 (09:00→22:30)
[2023-03-16] MEDS: Calcium Carbonate 500 MG Tab.Chew PO SCH (09:46)
[2023-03-16] MEDS: Vitamin B Complex Cap PO SCH (09:46)
[2023-03-16] MEDS: Thiamine 100 MG Tab PO SCH (09:47)
[2023-03-16] MEDS: Enoxaparin 40 MG/0.4 ML Syringe SUBCUT SCH (09:48)
[2023-03-16] MEDS ORDERED: LORazepam 0.5 MG Tab PO PRN (11:18)
[2023-03-16] MEDS ORDERED: MVI, Adult with Vitamin K 10 ML, Folic Acid 1 MG, Thiamine 100 MG in Lactated Ringers 1... IV ONE ×4 (11:18)
[2023-03-16] MEDS ORDERED: LORazepam 2 MG/ML SDV IV PRN (11:18)
[2023-03-16] MEDS ORDERED: cloNIDine 0.1 MG Tab PO PRN (11:18)
[2023-03-16] MEDS ORDERED: Diazepam 5 MG Tab PO PRN (11:18)
[2023-03-16] MEDS ORDERED: Thiamine 100 MG Tab PO SCH ×2 (11:19→21:00)
[2023-03-16] MEDS ORDERED: Metoprolol Tartrate 5 MG/5 ML SDV IVPUSH PRN (11:41)
[2023-03-16] MEDS ORDERED: hydrALAZINE 20 MG/ML SDV IVPUSH PRN (11:41)
[2023-03-16] MEDS ORDERED: cloNIDine 0.1 MG/Day Transdermal Patch TRDERM ONE (11:43)
[2023-03-16] MEDS ORDERED: Metoprolol Tartrate 25 MG Tab PO SCH (19:00)
[2023-03-16] MEDS ORDERED: Dextrose 5%-0.9% NaCl 1,000 ML IV SCH (20:00)
[2023-03-16] MEDS ORDERED: Morphine 2 MG/ML SYRINGE IVPUSH PRN (22:30)
[2023-03-16] MEDS: oxyCODONE ER 20 MG TAB.ER PO SCH (22:32)
[2023-03-16] MEDS: Folic Acid 1 MG Tab PO SCH (22:33)
[2023-03-16] MEDS: Metoprolol Tartrate 25 MG Tab PO SCH (22:33)
[2023-03-17] MEDS: Pantoprazole 40 MG Vial IVPUSH SCH (05:29)
[2023-03-17 06:18] LABS: BASOPHILS PERCENT AUTO 0.1 % (0.0-1.0); HEMATOCRIT 46.8 % (40.0-54.0); HEMOGLOBIN 15.7 g/dL (14.0-18.0); LYMPHOCYTES PERCENT AUTO 3.7 % (20.5-50.1); MEAN CORPUSCULAR HEMOGLOBIN 30.6 pg (27.0-34.0); MEAN CORPUSCULAR HGB CONC 33.5 g/dL (33.0-35.0); MEAN CORPUSCULAR VOLUME 91.2 fL (80-100); MONOCYTES PERCENT AUTO 6.9 % (2-8); NEUTROPHILS PERCENT AUTO 89.3 % (42.2-75.2); PLATELET COUNT,PLT 183 10^3/uL (150-450); RED BLOOD CELL COUNT 5.13 10^6/uL (4.6-6.2); WHITE BLOOD CELL COUNT,WBC 27.9 10^3/uL (5.0-10.0)
[2023-03-17 06:44] LABS: ALANINE AMINOTRANSFERASE,ALT 21 U/L (16-63); ALBUMIN 2.9 g/dL (3.4-5.0); ALKALINE PHOSPHATASE 113 U/L (46-116); ANION GAP 9.4 mEq/L (7-13); ASPARTATE AMNIOTRANSFERASE,AST 21 U/L (15-37); BILIRUBIN TOTAL 2.7 mg/dL (0.2-1.0); BLOOD UREA NITROGEN,BUN 4 mg/dL (7-18); BUN/CREATININE RATIO 5.3 (No establ ref range); CALCIUM 8.7 mg/dL (8.5-10.1); CARBON DIOXIDE,CO2 33 mmol/L (21-32); CHLORIDE,CL 94 mmol/L (98-107); CHOLESTEROL HDL 53 mg/dL (40-59); CHOLESTEROL LDL CALCULATED 69 mg/dL (0-100); CHOLESTEROL TOTAL 133 mg/dL (0-199); CREATININE 0.76 mg/dL (0.70-1.30); EST CRCL DRUG DOSING (CG) 134.91 mL/min; GLUCOSE RANDOM 100 mg/dL (70-99); POTASSIUM,K 3.4 mmol/L (3.5-5.1); PROTEIN TOTAL,TP 7.1 g/dL (6.4-8.2); SODIUM,NA 133 mmol/L (136-145); TRIGLYCERIDES 54 mg/dL (0-149)
[2023-03-17 06:59] LABS: A/G RATIO 0.69; ESTIMATED GFR 122 mL/min (>=60); LIPASE > 250 U/L (16-77)
[2023-03-17 07:00] LABS: C-REACTIVE PROTEIN 25.41 ng/dL (<=0.30)
[2023-03-17] MEDS ORDERED: Potassium Chloride 20 MEQ in Premix Bag 1 BAG IV ONE (08:25)
[2023-03-17] MEDS: Vitamin B Complex Cap PO SCH (09:21)
[2023-03-17] MEDS: oxyCODONE ER 20 MG TAB.ER PO SCH ×2 (09:21→20:11)
[2023-03-17] MEDS: Calcium Carbonate 500 MG Tab.Chew PO SCH (09:21)
[2023-03-17] MEDS: Folic Acid 1 MG Tab PO SCH (09:22)
[2023-03-17] MEDS: Metoprolol Tartrate 25 MG Tab PO SCH ×2 (09:22→20:11)
[2023-03-17] MEDS: Enoxaparin 40 MG/0.4 ML Syringe SUBCUT SCH (09:23)
[2023-03-17] MEDS: Piperacillin/Tazobactam 3.375 GM in Sodium Chloride 0.9% 100 ML IV SCH ×3 (09:25→20:12)
[2023-03-17] MEDS ORDERED: MVI, Adult with Vitamin K 10 ML, Folic Acid 1 MG, Thiamine 100 MG in Lactated Ringers 1... IV ONE ×4 (15:00)
[2023-03-17] MEDS: Multivitamin Tab PO SCH (20:11)
[2023-03-17] MEDS: Thiamine 100 MG Tab PO SCH (20:11)
[2023-03-17] MEDS: Saccharomyces Boulardii (Probiotic) 250 MG Cap PO SCH (21:07)
[2023-03-18] MEDS: Piperacillin/Tazobactam 3.375 GM in Sodium Chloride 0.9% 100 ML IV SCH ×3 (03:16→15:48)
[2023-03-18] MEDS: Pantoprazole 40 MG Vial IVPUSH SCH (05:16)
[2023-03-18 06:22] LABS: BASOPHILS PERCENT AUTO 0.2 % (0.0-1.0); EOSINOPHILS PERCENT AUTO 0.2 % (1.0-3.0); HEMATOCRIT 39.8 % (40.0-54.0); HEMOGLOBIN 13.5 g/dL (14.0-18.0); LYMPHOCYTES PERCENT AUTO 5.7 % (20.5-50.1); MEAN CORPUSCULAR HGB CONC 33.9 g/dL (33.0-35.0); MEAN CORPUSCULAR VOLUME 91.5 fL (80-100); MONOCYTES PERCENT AUTO 9.5 % (2-8); NEUTROPHILS PERCENT AUTO 84.4 % (42.2-75.2); PLATELET COUNT,PLT 151 10^3/uL (150-450); RED BLOOD CELL COUNT 4.35 10^6/uL (4.6-6.2); WHITE BLOOD CELL COUNT,WBC 18.8 10^3/uL (5.0-10.0)
[2023-03-18 06:38] LABS: ALANINE AMINOTRANSFERASE,ALT 18 U/L (16-63); ALBUMIN 2.2 g/dL (3.4-5.0); ALKALINE PHOSPHATASE 90 U/L (46-116); ANION GAP 11.1 mEq/L (7-13); ASPARTATE AMNIOTRANSFERASE,AST 17 U/L (15-37); BILIRUBIN TOTAL 3.3 mg/dL (0.2-1.0); BLOOD UREA NITROGEN,BUN 6 mg/dL (7-18); BUN/CREATININE RATIO 9.1 (No establ ref range); CALCIUM 8.2 mg/dL (8.5-10.1); CARBON DIOXIDE,CO2 30 mmol/L (21-32); CHLORIDE,CL 95 mmol/L (98-107); CREATININE 0.66 mg/dL (0.70-1.30); EST CRCL DRUG DOSING (CG) 155.35 mL/min; GLUCOSE RANDOM 83 mg/dL (70-99); LACTATE DEHYDROGENASE,LDH 142 U/L (85-227); LIPASE 169 U/L (16-77); POTASSIUM,K 3.1 mmol/L (3.5-5.1); PROTEIN TOTAL,TP 5.9 g/dL (6.4-8.2); SODIUM,NA 133 mmol/L (136-145)
[2023-03-18 07:01] LABS: A/G RATIO 0.59; C-REACTIVE PROTEIN > 25.00 ng/dL (<=0.30); ESTIMATED GFR 127 mL/min (>=60)
[2023-03-18] MEDS: Multivitamin Tab PO SCH (08:36)
[2023-03-18] MEDS: Thiamine 100 MG Tab PO SCH (08:36)
[2023-03-18] MEDS: Saccharomyces Boulardii (Probiotic) 250 MG Cap PO SCH (08:36)
[2023-03-18] MEDS: Metoprolol Tartrate 25 MG Tab PO SCH (08:37)
[2023-03-18] MEDS: Calcium Carbonate 500 MG Tab.Chew PO SCH (08:38)
[2023-03-18] MEDS: oxyCODONE ER 20 MG TAB.ER PO SCH (08:38)
[2023-03-18] MEDS: Vitamin B Complex Cap PO SCH (08:39)
[2023-03-18] MEDS: Folic Acid 1 MG Tab PO SCH (08:39)
[2023-03-18] MEDS: Enoxaparin 40 MG/0.4 ML Syringe SUBCUT SCH (08:39)
[2023-03-18] MEDS ORDERED: Magnesium Sulfate/Water 2 GM in Premix Bag 1 BAG IV ONE ×2 (10:36→13:00)
[2023-03-18] MEDS ORDERED: Potassium Chloride 10 MEQ Tab.ER PO ONE ×2 (11:00→17:00)
[2023-03-18 16:52] VITALS: BP 113/74; PULSE 73
[2023-03-18 17:25] LABS: ALBUMIN 2.1 g/dL (3.4-5.0); ANION GAP 8.5 mEq/L (7-13); BUN/CREATININE RATIO 10.4 (No establ ref range); CALCIUM 8.2 mg/dL (8.5-10.1); CREATININE 0.67 mg/dL (0.70-1.30); EST CRCL DRUG DOSING (CG) 153.03 mL/min; MAGNESIUM 2.2 mg/dL (1.8-2.4); POTASSIUM,K 3.5 mmol/L (3.5-5.1); PROTEIN TOTAL,TP 5.8 g/dL (6.4-8.2)
[2023-03-18 17:30] LABS: A/G RATIO 0.57
== END 2023-03-18 18:10 | disposition home or self-care (01) | DRG 439 ==
LOC: DL.ED 09:54 → DL.MS 12:32
PROVIDERS: ADMIT Hospitalist; ATTEND Hospitalist
DX: K85.20 Alcohol induced acute pancreatitis without necrosis or infection (principal); E87.1 Hypo-osmolality and hyponatremia; F17.210 Nicotine dependence, cigarettes, uncomplicated; F12.90 Cannabis use, unspecified, uncomplicated; E86.0 Dehydration; K57.30 Diverticulosis of large intestine without perforation or abscess without bleeding; K76.0 Fatty (change of) liver, not elsewhere classified; F10.20 Alcohol dependence, uncomplicated; I10 Essential (primary) hypertension; D72.829 Elevated white blood cell count, unspecified; E11.65 Type 2 diabetes mellitus with hyperglycemia; E83.52 Hypercalcemia; E80.6 Other disorders of bilirubin metabolism; R79.82 Elevated C-reactive protein (CRP); R74.8 Abnormal levels of other serum enzymes; E87.6 Hypokalemia; E55.9 Vitamin D deficiency, unspecified; Z91.048 Other nonmedicinal substance allergy status; Z79.899 Other long term (current) drug therapy
CPT/HCPCS: 36415; 74177; 80048; 80053; 80061; 80305-QW; 80307; 81001; 82947; 83605; 83615; 83690; 83735; 85025; 85610; 86140; 96361; 96374; 96375; 99285; 99285-25; A9270-GY; C9113; J0360; J1170; J1650; J2270; J2405; J2543; J2550; J3411; J3475; J3480; J3490; J7042; J7120; Q9967

== ENCOUNTER 2023-04-08 01:31 | Emergency (ER) | payer MEDICAID ==
[2023-04-08 01:40] VITALS: BP 129/96; PULSE 60
[2023-04-08] MEDS ORDERED: Sodium Chloride 0.9% 10 ML Syringe FLUSH PRN (01:49)
[2023-04-08 02:03] LABS: BASOPHILS PERCENT AUTO 0.5 % (0.0-1.0); EOSINOPHILS PERCENT AUTO 3.5 % (1.0-3.0); HEMATOCRIT 41.9 % (40.0-54.0); HEMOGLOBIN 13.5 g/dL (14.0-18.0); LYMPHOCYTES PERCENT AUTO 24.6 % (20.5-50.1); MEAN CORPUSCULAR HGB CONC 32.2 g/dL (33.0-35.0); MEAN CORPUSCULAR VOLUME 93.1 fL (80-100); MONOCYTES PERCENT AUTO 8.7 % (2-8); NEUTROPHILS PERCENT AUTO 62.7 % (42.2-75.2); PLATELET COUNT,PLT 352 10^3/uL (150-450); WHITE BLOOD CELL COUNT,WBC 10.6 10^3/uL (5.0-10.0)
[2023-04-08 02:22] LABS: A/G RATIO 0.78; ALBUMIN 3.1 g/dL (3.4-5.0); ANION GAP 8.6 mEq/L (7-13); BILIRUBIN TOTAL 0.4 mg/dL (0.2-1.0); CALCIUM 8.9 mg/dL (8.5-10.1); CREATININE 1.34 mg/dL (0.70-1.30); EST CRCL DRUG DOSING (CG) 80.96 mL/min; MAGNESIUM 1.7 mg/dL (1.8-2.4); POTASSIUM,K 3.6 mmol/L (3.5-5.1); PROTEIN TOTAL,TP 7.1 g/dL (6.4-8.2)
[2023-04-08 03:46] LABS: APPEARANCE,URINE CLOUDY (CLEAR); BILIRUBIN,URINE NEGATIVE (NEGATIVE); COLOR,URINE YELLOW (YELLOW); GLUCOSE,URINE NEGATIVE (NEGATIVE); KETONES,URINE NEGATIVE (NEGATIVE); LEUKOCYTE ESTERASE,URINE NEGATIVE (NEGATIVE); NITRITE,URINE NEGATIVE (NEGATIVE); OCCULT BLOOD,URINE NEGATIVE (NEGATIVE); PROTEIN,URINE NEGATIVE (NEGATIVE); UROBILINOGEN,URINE 0.2 mg/dL (0.2-1.0)
[2023-04-08 03:50] LABS: METHAMPHETAMINES,URINE NEGATIVE (NEGATIVE)
[2023-04-08 03:51] LABS: AMPHETAMINES,URINE NEGATIVE (NEGATIVE); BARBITURATES,URINE NEGATIVE (NEGATIVE); BENZODIAZEPINE,URINE NEGATIVE (NEGATIVE); MDMA (ECSTASY), URINE NEGATIVE (NEGATIVE); METHADONE,URINE NEGATIVE (NEGATIVE); OPIATES,URINE NEGATIVE (NEGATIVE); OXYCODONE,URINE NEGATIVE (NEGATIVE); PHENCYCLIDINE,URINE NEGATIVE (NEGATIVE); TCA,URINE NEGATIVE (NEGATIVE)
== END 2023-04-08 04:55 | disposition home or self-care (01) ==
LOC: DL.ED 01:31
DX: R10.13 Epigastric pain (principal); I10 Essential (primary) hypertension; E11.40 Type 2 diabetes mellitus with diabetic neuropathy, unspecified; Z91.048 Other nonmedicinal substance allergy status; Z79.899 Other long term (current) drug therapy
CPT/HCPCS: 36415; 80053; 80305-QW; 81003; 83690; 83735; 85025; 99284; J3490

== ENCOUNTER 2023-09-21 23:30 | Emergency (ER) | payer MEDICAID ==
[2023-09-21 23:46] VITALS: BP 119/99; PULSE 96
[2023-09-22 00:27] LABS: BASOPHILS PERCENT AUTO 0.6 % (0.0-1.0); EOSINOPHILS PERCENT AUTO 0.1 % (1.0-3.0); HEMATOCRIT 49.2 % (40.0-54.0); HEMOGLOBIN 16.4 g/dL (14.0-18.0); LYMPHOCYTES PERCENT AUTO 13.9 % (20.5-50.1); MEAN CORPUSCULAR HEMOGLOBIN 29.3 pg (27.0-34.0); MEAN CORPUSCULAR HGB CONC 33.3 g/dL (33.0-35.0); MEAN CORPUSCULAR VOLUME 87.9 fL (80-100); NEUTROPHILS PERCENT AUTO 77.4 % (42.2-75.2); PLATELET COUNT,PLT 353 10^3/uL (150-450); WHITE BLOOD CELL COUNT,WBC 14.2 10^3/uL (5.0-10.0)
[2023-09-22 00:32] LABS: AMPHETAMINES,URINE NEGATIVE (NEGATIVE); BARBITURATES,URINE NEGATIVE (NEGATIVE); BENZODIAZEPINE,URINE NEGATIVE (NEGATIVE); MDMA (ECSTASY), URINE NEGATIVE (NEGATIVE); METHADONE,URINE NEGATIVE (NEGATIVE); METHAMPHETAMINES,URINE NEGATIVE (NEGATIVE); OPIATES,URINE NEGATIVE (NEGATIVE); OXYCODONE,URINE NEGATIVE (NEGATIVE); PHENCYCLIDINE,URINE NEGATIVE (NEGATIVE); TCA,URINE NEGATIVE (NEGATIVE)
[2023-09-22 00:46] LABS: ALBUMIN 4.4 g/dL (3.4-5.0); BILIRUBIN TOTAL 0.5 mg/dL (0.2-1.0); BUN/CREATININE RATIO 7.3 (No establ ref range); CALCIUM 9.2 mg/dL (8.5-10.1); CREATININE 1.1 mg/dL (0.70-1.30); EST CRCL DRUG DOSING (CG) 99.77 mL/min
== END 2023-09-22 00:31 | disposition left against medical advice (07) ==
LOC: DL.ED 23:30
DX: S00.81XA Abrasion of other part of head, initial encounter (principal); R07.81 Pleurodynia; I10 Essential (primary) hypertension; E11.40 Type 2 diabetes mellitus with diabetic neuropathy, unspecified; F17.210 Nicotine dependence, cigarettes, uncomplicated; Z79.899 Other long term (current) drug therapy; Z91.048 Other nonmedicinal substance allergy status; Y04.2XXA Assault by strike against or bumped into by another person, initial encounter
CPT/HCPCS: 36415; 80053; 80305-QW; 80307; 85025; 99283; 99284

== ENCOUNTER 2023-09-22 12:15 | Emergency (ER) | payer MEDICAID ==
[2023-09-22 13:28] VITALS: BP 115/90; PULSE 98
[2023-09-22] MEDS: Ketorolac 30 MG/ML SDV IM ONE (13:43)
== END 2023-09-22 13:55 | disposition home or self-care (01) ==
LOC: DL.ED 12:15
DX: S00.83XA Contusion of other part of head, initial encounter (principal); I10 Essential (primary) hypertension; E11.9 Type 2 diabetes mellitus without complications; F17.210 Nicotine dependence, cigarettes, uncomplicated; Z91.048 Other nonmedicinal substance allergy status; Z79.899 Other long term (current) drug therapy; Y04.2XXA Assault by strike against or bumped into by another person, initial encounter
CPT/HCPCS: 96372; 99282; 99283; J1885

== ENCOUNTER 2024-04-01 20:56 | Emergency (ER) | payer SELFPAY ==
[2024-04-01 21:18] VITALS: BP 127/75; PULSE 91
[2024-04-01] MEDS ORDERED: Lidocaine 1% with EPINEPHrine 1:100,000 20 ML MDV ONE (21:22)
[2024-04-01] MEDS: Bacitracin/Neomycin/Polymyxin B Oint 28.4 GM Tube TOP ONE (21:47)
[2024-04-01] MEDS: Ketorolac 30 MG/ML SDV IM ONE (21:47)
[2024-04-01] MEDS: cefTRIAXone 1 GM, Lidocaine 1% 2.1 ML IM ONE (21:48)
== END 2024-04-01 22:16 | disposition home or self-care (01) ==
LOC: DL.ED 20:56
DX: H60.02 Abscess of left external ear (principal); I10 Essential (primary) hypertension; E11.40 Type 2 diabetes mellitus with diabetic neuropathy, unspecified; F17.210 Nicotine dependence, cigarettes, uncomplicated; Z79.899 Other long term (current) drug therapy; Z91.048 Other nonmedicinal substance allergy status
CPT/HCPCS: 10060; 87070; 96372; 99283; 99283-25; A9270-GY; J0696; J1885; J3490

== ENCOUNTER 2024-05-08 06:30 | Inpatient (IN) | payer MEDICAID ==
[2024-05-08 07:01] LABS: BASOPHILS PERCENT AUTO 0.1 % (0.0-1.0); HEMATOCRIT 52.4 % (40.0-54.0); HEMOGLOBIN 18.4 g/dL (14.0-18.0); LYMPHOCYTES PERCENT AUTO 2.7 % (20.5-50.1); MEAN CORPUSCULAR HEMOGLOBIN 29.9 pg (27.0-34.0); MEAN CORPUSCULAR HGB CONC 35.1 g/dL (33.0-35.0); MEAN CORPUSCULAR VOLUME 85.2 fL (80-100); MONOCYTES PERCENT AUTO 10.1 % (2-8); NEUTROPHILS PERCENT AUTO 87.1 % (42.2-75.2); PLATELET COUNT,PLT 207 10^3/uL (150-450); RED BLOOD CELL COUNT 6.15 10^6/uL (4.6-6.2); WHITE BLOOD CELL COUNT,WBC 15.5 10^3/uL (5.0-10.0)
[2024-05-08] MEDS: Sodium Chloride 0.9% 1,000 ML IV ONE ×2 (07:06→07:27)
[2024-05-08] MEDS: Ondansetron 4 MG/2 ML SDV IVPUSH ONE (07:19)
[2024-05-08] MEDS: Pantoprazole 40 MG Vial IVPUSH ONE (07:19)
[2024-05-08 07:27] LABS: A/G RATIO 0.8; ALANINE AMINOTRANSFERASE,ALT 25 U/L (16-63); ALKALINE PHOSPHATASE 182 U/L (46-116); ANION GAP 20.8 mEq/L (7-13); ASPARTATE AMNIOTRANSFERASE,AST 30 U/L (15-37); BLOOD UREA NITROGEN,BUN 17 mg/dL (7-18); BUN/CREATININE RATIO 12.8 (No establ ref range); CALCIUM 10.6 mg/dL (8.5-10.1); CARBON DIOXIDE,CO2 27 mmol/L (21-32); CHLORIDE,CL 89 mmol/L (98-107); CREATININE 1.33 mg/dL (0.70-1.30); EST CRCL DRUG DOSING (CG) 77.32 mL/min; ESTIMATED GFR 72 mL/min (>=60); GLUCOSE RANDOM 151 mg/dL (70-99); POTASSIUM,K 2.8 mmol/L (3.5-5.1); PROTEIN TOTAL,TP 8.9 g/dL (6.4-8.2); SODIUM,NA 134 mmol/L (136-145)
[2024-05-08 07:28] LABS: ETHANOL BLOOD MEDICAL < 3 mg/dL (0); LIPASE > 250 U/L (16-77)
[2024-05-08 07:37] LABS: PROTHROMBIN TIME 10.7 SEC (9.0-12.0)
[2024-05-08 07:41] LABS: LACTIC ACID 2.1 mmol/L (0.4-2.0)
[2024-05-08] MEDS: Potassium Chloride 10 MEQ in Premix Bag 1 BAG IV ONE (07:58)
[2024-05-08] MEDS: cefTRIAXone 1 GM Vial IVPUSH ONE (07:59)
[2024-05-08] MEDS: Morphine 2 MG/ML SYRINGE IVPUSH ONE (08:10)
[2024-05-08 08:12] LABS: APPEARANCE,URINE CLEAR (CLEAR); BILIRUBIN,URINE MODERATE (NEGATIVE); COLOR,URINE AMBER (YELLOW); GLUCOSE,URINE NEGATIVE (NEGATIVE); KETONES,URINE >=160 (NEGATIVE); LEUKOCYTE ESTERASE,URINE NEGATIVE (NEGATIVE); NITRITE,URINE NEGATIVE (NEGATIVE); OCCULT BLOOD,URINE TRACE-INTACT (NEGATIVE); PROTEIN,URINE 100 (NEGATIVE)
[2024-05-08 08:16] LABS: AMPHETAMINES,URINE NEGATIVE (NEGATIVE); BARBITURATES,URINE NEGATIVE (NEGATIVE); BENZODIAZEPINE,URINE NEGATIVE (NEGATIVE); MDMA (ECSTASY), URINE NEGATIVE (NEGATIVE); METHADONE,URINE NEGATIVE (NEGATIVE); METHAMPHETAMINES,URINE NEGATIVE (NEGATIVE); OPIATES,URINE NEGATIVE (NEGATIVE); OXYCODONE,URINE NEGATIVE (NEGATIVE); PHENCYCLIDINE,URINE NEGATIVE (NEGATIVE); TCA,URINE NEGATIVE (NEGATIVE)
[2024-05-08 08:46] LABS: AMORPHOUS SEDIMENT,URINE FEW /HPF (NOT SEEN); HYALINE CASTS,URINE MODERATE; MUCUS,URINE MODERATE /LPF (NOT SEEN); RBC,URINE 0-5 /HPF (0-5)
[2024-05-08 08:47] LABS: BACTERIA,URINE MODERATE /HPF (0-FEW/HPF); EPITHELIAL CELLS,URINE NOT SEEN /HPF (NOT SEEN); WBC,URINE 0-5 /HPF (0-5/HPF)
[2024-05-08] MEDS ORDERED: Naloxone 2 MG/2 ML Syringe IVPUSH PRN (10:13)
[2024-05-08] MEDS: Potassium Chloride 20 MEQ in Premix Bag 1 BAG IV ONE (10:31)
[2024-05-08] MEDS: Sodium Chloride 0.9% 1,000 ML IV SCH (10:32)
[2024-05-08] MEDS: Ondansetron 4 MG/2 ML SDV IVPUSH PRN (10:33)
[2024-05-08] MEDS: HYDROmorphone 1 MG/ML Syringe IVPUSH PRN (10:33)
[2024-05-08] MEDS ORDERED: Sodium Chloride 0.9% 10 ML Syringe FLUSH PRN (12:41)
[2024-05-08] MEDS: Enoxaparin 40 MG/0.4 ML Syringe SUBCUT SCH (18:15)
[2024-05-08] MEDS: HYDROmorphone 0.5 MG/0.5 ML Syringe IVPUSH PRN (18:19)
[2024-05-08] MEDS: Morphine 2 MG/ML SYRINGE IVPUSH PRN (20:21)
[2024-05-08] MEDS: Thiamine 100 MG Tab PO SCH (20:21)
[2024-05-08] MEDS: Pantoprazole 40 MG Vial IVPUSH SCH (20:21)
[2024-05-09 06:52] LABS: ALBUMIN 2.4 g/dL (3.4-5.0); ANION GAP 13.5 mEq/L (7-13); BILIRUBIN TOTAL 1.7 mg/dL (0.2-1.0); CALCIUM 8.5 mg/dL (8.5-10.1); CREATININE 0.8 mg/dL (0.70-1.30); EST CRCL DRUG DOSING (CG) 128.55 mL/min; POTASSIUM,K 4.5 mmol/L (3.5-5.1); PROTEIN TOTAL,TP 6.1 g/dL (6.4-8.2)
[2024-05-09 06:58] LABS: A/G RATIO 0.65; BUN/CREATININE RATIO 6.3 (No establ ref range)
[2024-05-09] MEDS ORDERED: hydrALAZINE 20 MG/ML SDV IVPUSH PRN (09:03)
[2024-05-09] MEDS: Chlorthalidone 25 MG Tab PO SCH (09:51)
[2024-05-09] MEDS: oxyCODONE 5 MG Tab PO PRN (09:51)
[2024-05-09] MEDS: Vitamin B Complex Cap PO SCH (09:51)
[2024-05-10 17:52] VITALS: BP 109/68; PULSE 78
== END 2024-05-10 17:45 | disposition home or self-care (01) | DRG 439 ==
LOC: DL.ED 06:30 → DL.MS 09:00 → UNDOADMIN 09:00 → DL.ED 09:05
PROVIDERS: ADMIT Internal Medicine; ATTEND Internal Medicine
DX: K85.20 Alcohol induced acute pancreatitis without necrosis or infection (principal); E87.1 Hypo-osmolality and hyponatremia; N17.9 Acute kidney failure, unspecified; I10 Essential (primary) hypertension; E11.40 Type 2 diabetes mellitus with diabetic neuropathy, unspecified; E87.6 Hypokalemia; E86.0 Dehydration; F10.20 Alcohol dependence, uncomplicated; Z79.899 Other long term (current) drug therapy; Z79.2 Long term (current) use of antibiotics
CPT/HCPCS: 36415; 71045; 80053; 80305-QW; 80307; 81001; 82947; 83605; 83690; 83735; 84484; 85025; 85610; 87040; 93005; 93010; 96361; 96374; 96375; 99223; 99239; 99285; 99285-25; A9270-GY; J0696; J1171; J1650; J2270; J2405; J2470; J3480; J7030